=== PATIENT | female | born 1975 | race Caucasian/White ===

== ENCOUNTER 2018-01-25 16:23 | Emergency (ER) | payer OTHER ==
[~2018-01-25] VITALS: Ht 157.4 cm; Wt 77.1 kg
[~2018-01-25 16:23] MED LIST: ATIVAN0.5 MG PO; IBU-6600 MG PO; METFORMIN500 MG PO; MOTRIN800 MG PO
== END 2018-01-25 18:14 | disposition home or self-care (01) ==
LOC: ED 16:23
DX: S66.911A Strain of unspecified muscle, fascia and tendon at wrist and hand level, right hand, initial encounter (principal); Z79.899 Other long term (current) drug therapy; X50.1XXA Overexertion from prolonged static or awkward postures, initial encounter; Y93.89 Activity, other specified; Y92.69 Other specified industrial and construction area as the place of occurrence of the external cause; Y99.9 Unspecified external cause status

== ENCOUNTER 2025-08-25 01:06 | Emergency (ER) | payer OTHER ==
[~2025-08-25] VITALS: Ht 157.4 cm; Wt 69.9 kg
[~2025-08-25 01:06] MED LIST changes: +NAPROSYN500 MG PO
[2025-08-25 02:05] LABS: BASO # 0.0 10*3/uL (0.0-0.1); BASO % 0.3 % (0.0-1.0); EOS # 0.2 10*3/uL (0.0-0.4); EOS % 2.3 % (1.0-4.0); MEAN CELL VOLUME 95.6 fl (81.0-99.0); MEAN CORPUSCULAR HGB 32.0 pg (27.0-31.0); MEAN PLATELET VOLUME 10.0 fl (9.6-12.3); MONO # 0.4 10*3/uL (0.1-1.0); MONO % 5.4 % (3.0-9.0); NEUT # 4.2 10*3/uL (2.3-7.9); NEUT % 56.0 % (47.0-73.0); NUCLEATED RED BLOOD CELL 0.0 % (0.0-0.0); NUCLEATED RED BLOOD CELL 0.0 10*3/uL (0.0-0.0); PLATELET COUNT AUTOMATED 276 10*3/uL (130-400); RED CELL DISTRI WIDTH 12.3 % (0-14.5)
[2025-08-25 02:33] LABS: BUN 11 mg/dl (9-23); SGPT/ALT 12 U/L (5-49)
== END 2025-08-25 05:02 | disposition home or self-care (01) ==
LOC: ED 01:06
PROVIDERS: Emergency Medicine
DX: R07.89 Other chest pain (principal); R11.0 Nausea; I10 Essential (primary) hypertension; Z79.899 Other long term (current) drug therapy